=== PATIENT | female | born 1975 | race Caucasian/White ===

== ENCOUNTER 2022-05-20 17:15 | Outpatient (CLI) | payer OTHER, SELFPAY ==
--- NOTE | 2022-05-20 | CRLHL7_ITS ---
For Patients: As a result of the Century Cures Act, medical imaging exams and procedure reports are released immediately into your electronic medical record. You may view this report before your referring provider. If you have questions, please contact your health care provider. DATE: 05/20/2022. CLINICAL HISTORY: Lower back pain; lower extremity radiculopathy. TECHNIQUE: Multiplanar, multi-sequence MRI examination of the lumbar spine was performed. COMPARISON: None available. FINDINGS: There are 5 [id number] lumbar type vertebra. No acute fracture, traumatic malalignment, or acute ligamentous injury involving the lumbar spine. Vertebral body heights are maintained without evidence of compression deformity. No evidence of aggressive osseous lesion. The conus medullaris is within normal limits. Mild lumbar spondylosis with multilevel chronic Schmorl`s nodes seen projecting to the inferior endplates of T11 and T12 and through the superior end-plates of L1, L2, L3, and L4. Mild degenerative grade 1 anterolisthesis of L4 on L5. T11-12: Disc degeneration with right anterior endplate osteophytosis asymmetric to the right. No significant spinal canal stenosis or foraminal narrowing. T12-L1, L1-2: Mild disc degeneration. No significant spinal canal stenosis or foraminal narrowing. L2-3: Mild disc degeneration. Very mild disc bulge slightly indents the ventral thecal sac but without resulting spinal canal stenosis or foraminal narrowing. L3-4: Disc degeneration with mild loss of disc height. No significant spinal canal stenosis or foraminal narrowing. L4-5: Mild degenerative grade 1 anterolisthesis. Disc degeneration with endplate osteophytic ridging asymmetric to the left with slight indentation of the ventral thecal sac and mild narrowing of the left subarticular recess containing the descending left L5 nerve root. No significant spinal canal stenosis. Moderate left and mild right facet arthropathy. No significant foraminal narrowing. L5-S1: Mild disc degeneration. No significant spinal canal stenosis or foraminal narrowing. The visualized prevertebral soft tissues are unremarkable. IMPRESSION: 1. Mild lumbar spondylosis with multilevel chronic Schmorl`s nodes. 2. Mild degenerative grade 1 anterolisthesis of L4 on L5. 3. At L4-5, there is mild narrowing of the left subarticular recess containing the descending left L5 nerve root. There is also moderate left and mild right facet arthropathy. 4. No significant spinal canal stenosis or foraminal narrowing. Dictated by Lamont Persaud MD @ 05/20/2022 6:24:22 PM (Electronically Signed)
== END 2022-05-20 17:16 | disposition home or self-care (01) ==
LOC: MRI 17:15
PROVIDERS: PCP Family Medicine; Visit Provider Family Medicine
DX: M54.50 Low back pain, unspecified (principal); M54.16 Radiculopathy, lumbar region; M47.816 Spondylosis without myelopathy or radiculopathy, lumbar region; M51.36 Other intervertebral disc degeneration, lumbar region
CPT/HCPCS: 72148

== ENCOUNTER 2022-08-13 11:00 | Outpatient (CLI) | payer OTHER, SELFPAY | END 2022-08-13 11:01 | disposition home or self-care (01) | LOC: INJ CL 11:00 | PROVIDERS: PCP Family Medicine; Visit Provider Family Medicine | DX: M51.36 Other intervertebral disc degeneration, lumbar region (principal); M54.16 Radiculopathy, lumbar region | CPT/HCPCS: 62323; J0702; Q9966 ==

== ENCOUNTER 2023-02-11 10:20 | Outpatient (CLI) | payer BC, SELFPAY | END 2023-02-11 10:21 | disposition home or self-care (01) | LOC: INJ CL 10:25 | PROVIDERS: PCP Family Medicine; Visit Provider Family Medicine | DX: M54.16 Radiculopathy, lumbar region (principal); M51.36 Other intervertebral disc degeneration, lumbar region | CPT/HCPCS: 62323; J0702; Q9966 ==

== ENCOUNTER 2024-06-23 08:00 | Outpatient (CLI) | payer BC, SELFPAY ==
--- NOTE | 2024-06-23 08:15 | CRLHL7_ITS ---
For Patients: As a result of the Century Cures Act, medical imaging exams and procedure reports are released immediately into your electronic medical record. You may view this report before your referring provider. If you have questions, please contact your health care provider. INDICATION: ESOPHAGEAL DYSPHAGIA TECHNIQUE: Modified barium swallow. Fluoroscopic time 1 minute 2 seconds. COMPARISON: None FINDINGS/IMPRESSION: Anatomical structures are normal. Swallowing mechanism appears within normal limits. Mild premature spillage into the vallecula and piriform sinuses considered within normal limits no episodes of penetration or aspiration. No significant findings. Dictated by Rohit Raman MD @ 06/23/2024 9:11:15 AM (Electronically Signed)
== END 2024-06-23 08:01 | disposition home or self-care (01) ==
LOC: RAD 08:03
PROVIDERS: PCP Family Medicine; Visit Provider Family Medicine
DX: R13.19 Other dysphagia (principal)
CPT/HCPCS: 74230; 92611